=== PATIENT | female | born 1935 | race Caucasian/White ===

== ENCOUNTER → 2016-07-08 | Outpatient (CLI) | payer MEDICARE, OTHER ==
[~2016-07-08] MED LIST: ASPIR 8181 MG PO; COZAAR DPS50 MG PO; DELTASONE DPS10 MG PO; DULERA 100/58.8 GM IH; DUONEB DPS3 ML IH; GLUCOTROL DPS5 MG PO; LEVAQUIN DPS500 MG PO; NORVASC DPS10 MG PO; OYSTER SHELL C500 MG PO; REQUIP DPS0.5 MG PO; SLOW-MAG64 MG PO; SPIRIVA18 MCG PO; VESICARE5 MG PO; XALATAN2.5 ML OU
== END | disposition home or self-care (01) ==
LOC: RAD.S 07-07 14:25
DX: H53.129 Transient visual loss, unspecified eye (principal); G31.9 Degenerative disease of nervous system, unspecified; G93.89 Other specified disorders of brain; M85.2 Hyperostosis of skull; Z87.898 Personal history of other specified conditions

== ENCOUNTER → 2016-12-20 | Outpatient (CLI) | payer MEDICARE, OTHER | END | disposition home or self-care (01) | LOC: RESC 08:55 | DX: R06.02 Shortness of breath (principal); R94.2 Abnormal results of pulmonary function studies ==